=== PATIENT | male | born 1995 | race African-American/Black ===

== ENCOUNTER 2016-11-15 20:10 | Emergency (ER) | payer MEDICAID, OTHER ==
[~2016-11-15] VITALS: Ht 190.5 cm; Wt 93.0 kg
[~2016-11-15 20:10] MED LIST: Z.0.NO CURRENT MEDS
[2016-11-15 20:18] VITALS: BP 144/88; PULSE 98; RESP 18; TEMP 98.9; O2SAT 100
[2016-11-15 20:30] VITALS: O2SAT 100
[2016-11-15] MEDS ORDERED: SODIUM CHLORIDE 0.9% FLUSH 10 ML FLUSH IVF PRN (20:30)
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
[2016-11-15 20:48] LABS: BASOPHIL % 0.5 % (0.0-2.0); EOSINOPHIL # 0.1 TH/MM3 (0-0.4); EOSINOPHIL % 1.3 % (0.0-4.0); HEMO FLAGS DIFF FINAL; LYMPH % 35.8 % (9.0-44.0); LYMPHOCYTE # 3.1 TH/MM3 (1.0-4.8); MEAN CELL VOLUME 82.2 FL (80.0-100.0); MEAN CORPUSCULAR HEMOGLOBIN 27.4 PG (27.0-34.0); MEAN CORPUSCULAR HGB CONC 33.3 % (32.0-36.0); MONO % 5.5 % (0.0-8.0); NEUT % 56.9 % (16.0-70.0); PLATELET COUNT 159 TH/MM3 (150-450); RED BLOOD COUNT 6.09 MIL/MM3 (4.50-5.90); RED CELL DISTRIBUTION WIDTH 13.9 % (11.6-17.2); WHITE BLOOD COUNT 8.8 TH/MM3 (4.0-11.0)
[2016-11-15 20:57] LABS: APTT (PATIENT) 27.7 SEC (24.3-30.1); PROTHROMBIN TIME - PATIENT 11.1 SEC (9.8-11.6)
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
[2016-11-15 21:14] LABS: ALT (GPT) 53 U/L (12-78); ANION GAP 8 MEQ/L (5-15); AST (GOT) 60 U/L (15-37); BICARBONATE 27.4 MEQ/L (21.0-32.0); BLOOD UREA NITROGEN 12 MG/DL (7-18); CHLORIDE 103 MEQ/L (98-107); GLOMERULAR FILTRATION RATE 84 ML/MIN (>89); POTASSIUM 3.5 MEQ/L (3.5-5.1); SODIUM (NA) 138 MEQ/L (136-145)
[2016-11-15 21:19] LABS: ALKALINE PHOSPHATASE 96 U/L (45-117); CREATINE KINASE 278 U/L (39-308); TOTAL BILIRUBIN ADULT 0.5 MG/DL (0.2-1.0)
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
[2016-11-15] MEDS ORDERED: MORPHINE SULFATE 4 MG/ML INJ IV PUSH ONE (21:30)
[2016-11-15] MEDS ORDERED: IBUP800T23 PO (22:41)
[2016-11-15 22:56] VITALS: BP 131/85
--- NOTE | 2016-11-16 14:05 | EKG ---
Date Performed: 11/15/2016 Time Performed: 20:33:10 PTAGE: 21 years EKG: Sinus rhythm MODERATE INTRAVENTRICULAR CONDUCTION DELAY BORDERLINE ECG NO PREVIOUS TRACING DOCTOR: Dino Deluna Interpretating Date/Time 11/16/2016 14:03:06
== END 2016-11-15 23:10 | disposition home or self-care (01) ==
LOC: NEPE 20:10
DX: S02.2XXA Fracture of nasal bones, initial encounter for closed fracture (principal); M79.1 Myalgia; V49.9XXA Car occupant (driver) (passenger) injured in unspecified traffic accident, initial encounter
CPT/HCPCS: 70450; 70486; 71010; 80053; 82550; 82552; 84484; 85025; 85610; 85730; 93005; 96374; 99285; J2270

== ENCOUNTER 2017-03-06 10:57 | Emergency (ER) | payer SELFPAY ==
[~2017-03-06] VITALS: Ht 190.5 cm; Wt 100.0 kg
[~2017-03-06 10:57] MED LIST changes: +IBUP1TAB7 PO; -Z.0.NO CURRENT MEDS
[2017-03-06 10:59] VITALS: BP 151/90; PULSE 81; RESP 16; TEMP 98.9; O2SAT 100
[2017-03-06] MEDS ORDERED: HYDR-4204 TOPICAL (11:38)
--- NOTE | 2017-03-06 11:38 | PD ---
HPI . Skin irritation Chief Complaint: Skin Problem Time Seen by Provider: 11:13 Travel History International Travel<30 days: No Contact w/Intl Traveler<30days: No Traveled to known affect area: No History of Present Illness HPI 21-year-old male patient presents emergency department for left arm skin irritation 30 minutes. Patient denies any new lotions, soaps, detergents or possible irritants. Patient states he was just resting and noticed that his left arm surrounding the AC joint was reddened. Patient denies irritation being itchy or painful. Patient had a fever, chills, malaise, nausea, vomiting , shortness of breath, coughing, difficulty breathing, chest pain. Patient denies any injuries, traumas to the area. She denies being bit or stung by any bugs. Patient has not known allergies. Patient has no major medical history and doesn't take any daily medication. PFSH Past Medical History Medical History: Denies Significant Hx Diminished Hearing: No Immunizations Current: Yes Past Surgical History Surgical History: No Previous Surgery Social History Alcohol Use: Yes Tobacco Use: No Substance Use: No Allergies-Medications (Allergen,Severity, Reaction): Coded Allergies: No Known Allergies (Verified Adverse Reaction, Unknown, 03/06/17) Reported Meds & Prescriptions Reported Meds & Active Scripts Active Ala-Gamaliel Topical (Hydrocortisone (Topical)) 2.5% Cream 1 Applic TOPICAL DIRECTED Review of Systems Except as stated in HPI: all other systems reviewed are Neg Physical Exam Narrative GENERAL: Well-nourished, well-developed 21-year-old male patient in no acute distress. Nontoxic appearing. SKIN: Mild erythema of localized to the left arm proximal to the AC joint. No lesions, swelling or edema noted. HEAD: Normocephalic. Atraumatic. EYES: No scleral icterus. No injection or drainage. NECK: Supple, trachea midline. No JVD or lymphadenopathy. CARDIOVASCULAR: Regular rate and rhythm without murmurs, gallops, or rubs. Radial pulses +2 bilaterally. RESPIRATORY: Breath sounds equal bilaterally. No accessory muscle use. GASTROINTESTINAL: Abdomen soft, non-tender, nondistended. MUSCULOSKELETAL: Full range of motion noted to the left upper extremity. No cyanosis, or edema. Data Data Last Documented VS Vital Signs Date Time Temp Pulse Resp B/P (MAP) Pulse Ox O2 Delivery O2 Flow Rate FiO2 03/06/17 10:59 98.9 81 16 151/90 (110) 100 Room Air Orders Orders Ed Discharge Order (03/06/17 11:38) MDM Medical Decision Making Medical Screen Exam Complete: Yes Emergency Medical Condition: Yes Differential Diagnosis Differential diagnoses include but not limited to contact dermatitis, atopic dermatitis, Bug bite, insect sting, erythema, allergic reaction Narrative Course 21-year-old male patient presents emergency department for evaluation of mild erythema to the inner left arm proximal to the AC joint. Patient denies any itching or pain associated with erythema. Patient denies any fever, chills, shortness breath, chest pain, nausea, vomiting, diarrhea. Patient denies any injuries or traumas to the arm. The left arm is neurovascularly intact with full range of motion noted. Patient discharged home with prescription for hydrocortisone and instructed to take Benadryl as needed and return to the emergency Department with any worsening condition or trouble breathing. Diagnosis Primary Impression: Contact dermatitis Qualified Codes: L25.9 - Unspecified contact dermatitis, unspecified cause Referrals: Primary Care Physician Patient Instructions: Contact Dermatitis (ED), General Instructions Additional Instructions: Please return to emergency department if your symptoms return or worsen. Follow up with your primary care provider. Keep area clean and dry. Use hydrocodone cream to minimize irritation. May take Benadryl at night to help reduce irritation. Med/Other Pt SpecificInfo: Prescription(s) given Scripts Hydrocortisone (Topical) (Ala-Gamaliel Topical) 2.5% Cream 1 APPLIC TOPICAL DIRECTED for Inflammation, #1 TUBE 0 Refills Prov: Leonarda Garcia 03/06/17 Disposition: 01 DISCHARGE HOME Condition: Stable JoseLeonarda Mar 06, 2017 11:38
== END 2017-03-06 11:45 | disposition home or self-care (01) ==
LOC: NEPD 10:57
DX: L25.9 Unspecified contact dermatitis, unspecified cause (principal)
CPT/HCPCS: 99283